=== PATIENT | male | born 1945 | race Caucasian/White ===

== ENCOUNTER 2017-06-15 15:23 | Inpatient (IN) ==
[2017-06-15 16:52] LABS: Basophils % 0.5 % (0.0-0.8); Eosinophils # 0.2 10*3/uL (0.0-0.87); Eosinophils % 2.7 % (0.00-10.9); Hematocrit 25.6 VOL% (42.0-52.0); Immature Granulocytes % 0.4 %; Immature Granulocytes Absolute 0.02 #; Lymphocytes # 0.8 10*3/uL (1.4-4.0); Lymphocytes % 14.8 % (21.2-54.2); Mean Corpuscular HGB Conc 25.4 GM/DL (32-36); Mean Corpuscular Hemoglobin 14 PG (27-34); Mean Corpuscular Volume 56.5 FL (87-102); Monocytes # 0.8 10*3/uL (0.11-0.8); Monocytes % 13.6 % (1.7-12.7); Neutrophils # 3.9 10*3/uL (1.4-7.4); Platelet Count 232 T/CUMM (130-400); Red Blood Count 4.53 MC/CUMM (3.8-5.5); Red Cell Distribution Width 21.3 % (9.3-17.3); White Blood Count 5.7 T/CUMM (4-12)
[2017-06-15 16:53] LABS: Hemoglobin 6.5 GM/DL (14.0-18.0)
--- NOTE | 2017-06-15 16:54 | Emergency Department Note ---
Arrival - Arrival Chief Complaint: Weakness Stated Complaint: Needs a blood transfusion ED Nursing Triage Note: Pt sent by Dr Rutherford for possible blood transfusion. Pt had lab work drawn yesterday told HGB 6.9. Pt c/o weakness Mode of Arrival: Ambulatory Limitations: No Limitations Source: Patient, Family, RN Notes Reviewed Time Seen by Provider: 06/15/17 16:34 - History of Present Illness HPI Narrative: Patient complains of generalized weakness for 2 more weeks. He denies any chest pain, nausea, vomiting, diaphoresis or syncope. The states he gets short of breath walking to the mailbox. The patient states he is just fatigued. He was seen by his primary care physician yesterday and had blood work drawn. He was called back today and told his hemoglobin was 6.9. He was instructed to come here for blood transfusion and further workup. The patient denies any rectal bleeding or other bleeding recently. He has had some constipation recently and has noticed some dark stool. His last bowel movement was today and was normal. He has a history of CAD, high cholesterol and diabetes. He denies any fever, rhinorrhea, sore throat, cough or recent illness. Allergies/Adverse Reactions: Allergies Allergy/AdvReac Type Severity Reaction Status Date / Time No Known Allergies Allergy Verified 06/15/17 15:24 Review of System - Review of System 12 point system: reviewed and no additional remarkable complaints except as stated - Review of System Constitutional: Present: weakness. Absent: chills, fever Head/Ears/Nose/Throat: Absent: nasal drainage, sore throat Respiratory: Absent: cough, respiratory distress, wheezing Cardiovascular: Present: dyspnea on exertion. Absent: chest pain, orthopnea, edema, syncope Gastrointestinal: Present: constipation. Absent: nausea, vomiting, diarrhea Medical,Surgical,& Family Hx - Medical History Cardio: History of: CAD Endocrine: History of: Diabetes Mellitus (NIDDM) ("Borderline"), Dyslipidemia - Surgical History Cardiac Surgeries: Sugical HX of: Cardiac Catheterization (stent), Cardiac Surgery (CABG) Abdominal Surgeries: Surgical HX of: Appendectomy - Family History Family History: noncontributory - Social History Smoking Status: Never smoker Exam Physical Examination: GENERAL: Alert. No acute distress. HEENT: Normocephalic and atraumatic. PERRLA. EOMI. Pale conjunctival. There is no nasal drainage. No pharyngeal erythema or exudate. NECK: Normal inspection. Supple. No lymphadenopathy or meningismus. LUNGS: No respiratory distress. Clear to auscultation bilaterally, no wheezes, rales or rhonchi. HEART: Regular rate and rhythm. 2 out of 6 systolic murmur. ABDOMEN: Soft, nontender and nondistended with normoactive bowel sounds. Rectal: Nontender. Positive noninflamed, nontender, nonthrombosed external hemorrhoid without bleeding. Heme negative. BACK: Normal inspection. SKIN: Color normal. Warm and dry. EXTREMITIES: Nontender. Normal range of motion. No pedal edema. NEUROLOGICAL/PSYCHIATRIC: Alert and oriented -3 with normal mood and affect. Cranial nerves normal. No motor or sensory deficit. Vital Signs: Vital Signs Temperature 97.9 F 06/15/17 15:23 Pulse Rate 93 H 06/15/17 15:23 Respiratory Rate 16 06/15/17 15:23 Blood Pressure 133/81 06/15/17 15:23 O2 Sat by Pulse Oximetry 100 06/15/17 15:23 Course - Reevaluation(s) Reevaluation #1: The patient has remained stable in the ER. He has symptomatic anemia and will need transfusion. The source of his anemia remains unclear as his Hemoccult was negative. He has no history of this in the past. I discussed patient with the hospitalist service who will see him and admit. Time: 17:54 Results - Labs CBC & BMP: 06/15/17 16:32 06/15/17 16:32 Lab Results: I have reviewed the patients labs Labs: Laboratory Tests 06/15/17 16:32 Calcium 8.4 L Total Bilirubin 0.50 AST 15 ALT 16 Disposition Clinical Impression: Anemia Case discussed with: patient, patient's family Disposition: Still a Patient Condition: Stable Time of Disposition: 17:45
[2017-06-15 17:29] LABS: Albumin 3.3 G/DL (3.4-5.0); Bilirubin,Total 0.5 MG/DL (0.2-1.0); Calcium 8.4 MG/DL (8.5-10.1); Osmolality,Calculated 281.3 MOS/KG (273-304); Potassium 3.9 MMOL/L (3.5-5.1); Total Protein 6.4 G/DL (6.4-8.3)
[2017-06-15] MEDS ORDERED: BISACODYL 5 MG TABLET PO PRN (19:22)
[2017-06-15] MEDS ORDERED: ONDANSETRON 4 MG/2 ML VIAL IV PRN (19:22)
[2017-06-15] MEDS ORDERED: LACTULOSE 20 GM/30 ML UDCUP PO PRN (19:22)
[2017-06-15 19:42] LABS: Anisocytosis 2+; Hypochromasia 2+; Microcytosis 3+; Ovalocytes Few; Platelet Estimate Normal; Poikilocytosis 2+; Tear Drop Cells Few
[2017-06-15 19:43] LABS: Burr Cells Few
[2017-06-15] MEDS ORDERED: DEXTROSE 50% 25 GM/50 ML SYRINGE IV PRN ×2 (19:46→21:09)
[2017-06-15] MEDS ORDERED: GLUCAGON 1 MG VIAL IM PRN ×2 (19:46→21:09)
[2017-06-15] MEDS ORDERED: SODIUM CHLORIDE 0.9% 250 ML IV PRN (19:52)
[2017-06-15 20:16] LABS: % Iron Saturation 1.5 % (18-50); Ferritin 4.5 ng/ml (26-388)
--- NOTE | 2017-06-15 20:20 | Hospitalist History & Physical ---
Assessment and Plan (1) Anemia Status: Acute Current Visit: Yes (2) GI (gastrointestinal bleed) Status: Acute Current Visit: Yes (3) CAD (coronary artery disease) Status: Chronic Current Visit: Yes (4) Pre-diabetes Status: Acute Assessment and plan: Plan: 1. Place on cardiac monitored bed. Anemia work up panel, Type and cross match and transfuse 2 units of PRBC, assess coags and h&H q 6 hours. IV fluids. 2. Suspect multifactorial, patient takes B12 suplement daily, has constipation issues with hemorrhoids. Suspect possible upper GI bleed due to complaints of off and on burning. GI consulted for work up. NPO until assessment per GI. IV protonix ordered 40mg daily. 3. Holding Plavix and ASA. EKG And Chest xray in am. SCD's for DVT prophylaxis. No lovenox at this time due to suspected bleeding. Resume statin tomorrow evening. 4. Accu cks q 6, insulin sliding scale. Hold metformin for now. Fifty three minutes was spent on this patient not including procedures. Current Visit: Yes History of Present Illness Chief complaint: Fatigue History of present illness: Mr. Almazan is a 71 year old male with past medical history significant for CAD on plavix and ASA with hx CABG x 3 and stents x3 several years ago, high cholesterol, prediabetes, and constipation, with dark colored stools that presented to the ED after being seen by his primary physician Dr. Rutherford and was found to have labs with significant anemia HGB of 5.9 and HCT 23.7. per scanned documention. He was called this am with lab results and instructed to come to the ED. The associated symptoms include fatigue, malaise , shortness, of breath when with exertion and pallor epigastric burning off and on. The patient denies chest pain dizziness, syncope, indigestion, nausea, vomiting, diaphoresis hematochezia . He states he has occasional hemorroids and has been constipated lately and bleeds sometimes after defecation but not a significant amount. Onset of symptoms were gradual and consistent and moderate in nature. Symptoms are worse with activity and improve with rest but never go away. He denies any ulcers. He underwent EGD and colonoscopy 2 years ago with no significant findings. He was placed on Plavix and aspirin 3 years ago for his stents. Labs on presentation to the ED revealed hemoglobin of 6.5 hematocrit 25.6 MCV of 56.5 MCH of 14 MCHC of 25.4 with platelets of 232. He has been typed and cross matched and will admitted to the Hospitalist service and placed on monitored cardiac Med Surg bed. Home Medications Medication Instructions Recorded Confirmed Type Aspirin EC Tab 325 mg PO QPM 06/15/17 06/15/17 History Cholecalciferol (Vitamin D3) 1,000 unit PO QPM 06/15/17 06/15/17 History [Vitamin D3] Clopidogrel [Plavix] 75 mg PO QPM 06/15/17 06/15/17 History Cyanocobalamin (Vitamin B-12) 2,500 mcg PO QPM 06/15/17 06/15/17 History [Vitamin B12] PARoxetine [Paxil] 20 mg PO QPM 06/15/17 06/15/17 History Rosuvastatin [Crestor] 20 mg PO QPM 06/15/17 06/15/17 History metFORMIN [Glucophage] 500 mg PO QPM 06/15/17 06/15/17 History Allergies Allergy/AdvReac Type Severity Reaction Status Date / Time No Known Allergies Allergy Verified 06/15/17 15:24 Medical,Surgical,& Family Hx - Medical History Cardio: History of: CAD, Cardiovascular Problems (CABG x 3 and Stents 3 years ago. Murmur) No history of: Cerebrovascular Disease Psychological: History of: Depression No history of: Anxiety Disorders Endocrine: History of: Diabetes Mellitus (NIDDM) ("Borderline"), Dyslipidemia Gastrointestinal: History of: Hemorrhoids, GI Problems (Constipation ) No history of: Crohn's Disease, Diverticulitis/ Diverticulosis, Esophageal Varices, Ulcerative Colitis Hematology: History of: Anemia - Surgical History Cardiac Surgeries: Sugical HX of: Cardiac Catheterization (stent), Cardiac Surgery (CABG) Abdominal Surgeries: Surgical HX of: Appendectomy - Family History Family History: Reports;: Family Hypertension - Social History Smoking Status: Never smoker Type of Drug Use: None Marital Status: Lives With:: Spouse Functional capacity: independent ambulation - Constitutional Constitutional: Present: fatigue, weakness - EENT Eyes: Present: requires corrective lense Nose, mouth and throat: Present: as per HPI, other - Cardiovascular Cardiovascular: Present: dyspnea on exertion. Absent: chest pain at rest, edema , palpitations - Respiratory Respiratory: Present: dyspnea on exertion. Absent: cough, hemoptysis, wheezing - Gastrointestinal Gastrointestinal: Present: bloating, constipation, heartburn, melena. Absent: fecal incontinence, hematemesis, hematochezia, nausea, vomiting - Genitourinary Genitourinary: Absent: difficulty urinating, hematuria - Musculoskeletal Musculoskeletal: Absent: back pain, muscle cramps, muscle weakness - Neurological Neurological: Absent: abnormal gait, confusion, paresthesias - Psychiatric Psychiatric: Absent: anxiety, auditory hallucinations, depression, suicidal ideation - Endocrine Endocrine: Present: cold intolerance - Hematologic/Lymphatic Hematologic/Lymphatic: Absent: easy bleeding, easy bruising Exam - Constitutional Vitals: Period Temp Pulse Resp BP Sys/Greco Pulse Ox Last 24 Hr 97.9 F-97.9 F 85-93 16-20 123-142/56-81 96-100 General appearance: normal weight, no acute distress - Head Head exam: Present: normal inspection, normocephalic, atraumatic - Eye Eye exam: Present: EOMI, other (pale conjucntiva) Pupils: Present: SITA - ENT ENT exam: Present: normal exam, other (pale mucous membranes, moist. ) - Cardiovascular Cardiovascular exam: Present: regular rate and rhythm, systolic murmur (II out of systolic murmur) - GI/Abdominal GI/Abdominal exam: Present: normal bowel sounds, soft (patient complains of constipation abd soft nontender. ) - Extremities Exam Extremities exam: Present: normal inspection, normal capillary refill, full ROM. Absent: edema - Back Exam Back exam: Present: normal inspection. Absent: CVA tenderness (L), CVA tenderness (R), vertebral tenderness - Neurological Exam Neurological exam: Present: alert, oriented X3, CN II-XII intact, reflexes normal. Absent: motor sensory deficit - Psychiatric Psychiatric exam: Present: normal affect - Skin Skin exam: Present: normal color, warm, dry, intact. Absent: diaphoretic, erythema Results - Labs CBC & BMP: 06/15/17 16:32 06/15/17 16:32 Quality Measures - VTE Contraindication to Pharmacological VTE Prophylaxis: Active Bleeding
[2017-06-15 20:31] LABS: Folate > 24.0 NG/ML (5.4-24.0); Vitamin B12 234 PG/ML (211-911)
[2017-06-15] MEDS: SODIUM CHLORIDE 0.9% 1,000 ML IV SCH (21:27)
[2017-06-15 22:20] LABS: Hematocrit 23.2 VOL% (42.0-52.0)
[2017-06-15 22:24] LABS: Hemoglobin 5.9 GM/DL (14.0-18.0)
[2017-06-15 22:28] LABS: Partial Thromboplastin Time 24.9 SECS (0-40)
[2017-06-15] MEDS: INSULIN LISPRO 100 UNIT/ML SUBCUT SCH (23:54)
[2017-06-16 01:53] LABS: Apearance,Urine CLEAR (Clear); Bilirubin,Urine Negative (Negative); Blood, Urine Negative (Negative); Glucose,Urine (UA) Negative (Negative); Ketones,Urine Negative (Negative); Nitrite,Urine Negative (Negative); Protein,Urine Negative; RBC,Urine 2 /HPF (0-4); Urine Color Yellow (Yellow); WBC,Urine <1 /HPF (0-6)
[2017-06-16 05:27] LABS: Basophils % 0.3 % (0.0-0.8); Eosinophils # 0.2 10*3/uL (0.0-0.87); Eosinophils % 3.3 % (0.00-10.9); Hemoglobin 7.7 GM/DL (14.0-18.0); Immature Granulocytes % 0.3 %; Immature Granulocytes Absolute 0.02 #; Lymphocytes % 15.8 % (21.2-54.2); Mean Corpuscular HGB Conc 27.3 GM/DL (32-36); Mean Corpuscular Hemoglobin 17 PG (27-34); Mean Corpuscular Volume 60.6 FL (87-102); Monocytes # 0.7 10*3/uL (0.11-0.8); Monocytes % 11.1 % (1.7-12.7); Neutrophils # 4.2 10*3/uL (1.4-7.4); Neutrophils % 69.2 % (38.7-73.9); Platelet Count 198 T/CUMM (130-400); Red Blood Count 4.65 MC/CUMM (3.8-5.5); Red Cell Distribution Width 27.4 % (9.3-17.3)
[2017-06-16 05:31] LABS: Hematocrit 28.2 VOL% (42.0-52.0)
[2017-06-16 05:48] LABS: Giant Platelets Few; Hypochromasia 1+; Ovalocytes Slight; Platelet Estimate Adequate
[2017-06-16 05:49] LABS: Microcytosis 1+
[2017-06-16 06:05] LABS: Albumin 2.9 G/DL (3.4-5.0); Bilirubin,Total 1.3 MG/DL (0.2-1.0); Calcium 8.4 MG/DL (8.5-10.1); Magnesium 2.3 MG/DL (1.8-2.4); Osmolality,Calculated 280.3 MOS/KG (273-304); Risk Ratio 3.82; Thyroid Stimulating Hormone 1.75 uIU/ml (0.358-3.74); Total Protein 5.5 G/DL (6.4-8.3); VLDL CHOLESTEROL 28.2 MG/DL
[2017-06-16] MEDS: INSULIN LISPRO 100 UNIT/ML SUBCUT SCH ×3 (06:06→18:48)
[2017-06-16] MEDS: SODIUM CHLORIDE 0.9% 1,000 ML IV SCH ×2 (07:26→13:54)
[2017-06-16 08:12] LABS: Hematocrit 26.3 VOL% (42.0-52.0)
[2017-06-16 08:15] LABS: Hemoglobin 7.3 GM/DL (14.0-18.0)
--- NOTE | 2017-06-16 08:24 | XRay Report ---
Portable chest Exam date: 06/16/2017 546 AM Indication: Shortness of breath, cough Comparison: Not available Findings: Mild cardiomegaly. Sternotomy wires and midline. Lungs are clear bilaterally. No acute osseous abnormalities. Visualized upper abdomen demonstrates no acute pathology. Impression: No acute cardiopulmonary findings PROCEDURE INTERPRETED AT [facility] DEPARTMENT OF RADIOLOGY Final Report Signed by: Catarino Morales
[2017-06-16] MEDS ORDERED: PANTOPRAZOLE 40 MG VIAL IV SCH (09:00)
--- NOTE | 2017-06-16 09:18 | EKG Report ---
Stationary ECG Study [facility] Test Date: 06/16/2017 8:24:59 AM Pat Name: JC HENDRIX Department: Room: 433 Gender: M Cops: ALISHA : [id number] Requested by: Gerardo Rosales Order Number: [id number] Matt MD: RENETTA CALVIN Intervals [place] Rate: 80 P: 61 [place]: 185 QRS: 70 QRSD: 101 T: 54 QT: 362 QTc: 398 Interpretive Statements SINUS RHYTHM INTERPRETATION BASED ON A DEFAULT AGE OF 40 YEARS Electronically Signed On 06-16-17 17:09:17 CDT by RENETTA CALVIN [email or web address]
--- NOTE | 2017-06-16 09:34 | Gastrointestinal Consult Note ---
Assessment and Plan (1) Anemia Status: Acute Assessment and plan: 06/16-several week history of fatigue and weakness with now reports of melena and a finding of hemoglobin of 5 at outside clinic. No prior history of anemia in the past or GI bleed. Last endoscopic evaluation 2 years ago. Obtain stool for occult blood. Obtain records from endoscopic clinic. Monitor serial H&H. Transfuse as necessary. We will plan on endoscopic evaluation after Plavix has been held 5 days. plan an addendum to followed by Dr. Fowler. Current Visit: Yes History of Present Illness Chief complaint: Anemia, melena History of present illness: Mr. Almazan is a 71 year old male who was admitted to the hospital and yesterday after being seen by his PCP, Dr. Rutherford, for complaints of weakness and fatigue. Patient has a prior history of CAD, Plavix therapy with history of stents with most recent placed last year, hypercholesterolemia, and reports of melena. Patient states that over the last several weeks he has gradually had an increase in fatigue and weakness. He states that he was just not feeling very well and earlier this week he began to notice that his stools were turning dark in color. He states that the symptoms persisted therefore he presented to see Dr. Rutherford and was found at that time to have a hemoglobin of 5.9. He was then referred to our facility for further evaluation. Patient states that he has had no nausea or vomiting and denies any epigastric pain. He has noted over the last several days that his GERD has worsened and not as well controlled. He denies any dysphagia, weight loss, fever or chills. He states that he has never had peptic ulcer disease in the past. His last endoscopy was done approximately 2 years ago at the endoscopic clinic by Dr. Fowler however he does not recall any abnormal findings at that time. His last dose of Plavix was on yesterday morning. He denies taking any NSAIDs. He was transfused 2 units of packed red blood cells with hemoglobin at 7 today. He denies a prior history of anemia and states he has not required a blood transfusion in the past. Home Medications Medication Instructions Recorded Confirmed Type Aspirin EC Tab 325 mg PO QPM 06/15/17 06/15/17 History Cholecalciferol (Vitamin D3) 1,000 unit PO QPM 06/15/17 06/15/17 History [Vitamin D3] Clopidogrel [Plavix] 75 mg PO QPM 06/15/17 06/15/17 History Cyanocobalamin (Vitamin B-12) 2,500 mcg PO QPM 06/15/17 06/15/17 History [Vitamin B12] PARoxetine [Paxil] 20 mg PO QPM 06/15/17 06/15/17 History Rosuvastatin [Crestor] 20 mg PO QPM 06/15/17 06/15/17 History metFORMIN [Glucophage] 500 mg PO QPM 06/15/17 06/15/17 History Allergies Allergy/AdvReac Type Severity Reaction Status Date / Time No Known Allergies Allergy Verified 06/15/17 15:24 Medical,Surgical,& Family Hx - Medical History Cardio: History of: CAD, Cardiovascular Problems (CABG x 3 and Stents 3 years ago. Murmur) No history of: Cerebrovascular Disease Psychological: History of: Depression No history of: Anxiety Disorders Endocrine: History of: Diabetes Mellitus (NIDDM) ("Borderline"), Dyslipidemia Gastrointestinal: History of: Hemorrhoids, GI Problems (Constipation ) No history of: Crohn's Disease, Diverticulitis/ Diverticulosis, Esophageal Varices, Ulcerative Colitis Hematology: History of: Anemia - Surgical History Cardiac Surgeries: Sugical HX of: Cardiac Catheterization (stent), Cardiac Surgery (CABG) Abdominal Surgeries: Surgical HX of: Appendectomy - Family History Family History: Reports;: Family Hypertension - Social History Smoking Status: Never smoker Frequency of Alcohol Use: None Type of Drug Use: None 12 point system: reviewed and no additional remarkable complaints except as stated - Constitutional Constitutional: Present: as per HPI, fatigue, malaise - EENT Eyes: Present: as per HPI Ears: Present: as per HPI Nose, mouth and throat: Present: as per HPI - Cardiovascular Cardiovascular: Present: as per HPI - Respiratory Respiratory: Present: as per HPI - Gastrointestinal Gastrointestinal: Present: as per HPI, melena - Genitourinary Genitourinary: Present: as per HPI - Musculoskeletal Musculoskeletal: Present: as per HPI - Neurological Neurological: Present: as per HPI - Psychiatric Psychiatric: Present: as per HPI - Endocrine Endocrine: Present: as per HPI - Hematologic/Lymphatic Hematologic/Lymphatic: Present: as per HPI Exam - Constitutional Vitals: Period Temp Pulse Resp BP Sys/Greco Pulse Ox Last 24 Hr 97.1 F-98.2 F 78-93 16-20 123-185/56-91 96-100 General appearance: normal weight, no acute distress - Head Head exam: Present: normal inspection, normocephalic - Eye Eye exam: Present: other (Lids and conjunctive are unremarkable). Absent: scleral icterus - ENT ENT exam: Present: normal exam, normal oropharynx - Neck Neck exam: Present: normal inspection - Respiratory Respiratory exam: Present: clear to auscultation bilaterally. Absent: rales, rhonchi, wheezes - Cardiovascular Cardiovascular exam: Present: regular rate and rhythm. Absent: diastolic murmur , JVD, systolic murmur - GI/Abdominal GI/Abdominal exam: Present: normal bowel sounds, soft. Absent: ascites, distended, mass, organomegaly, tenderness - Extremities Exam Extremities exam: Present: normal inspection, full ROM - Back Exam Back exam: Present: normal inspection - Neurological Exam Neurological exam: Present: alert, oriented X3 - Psychiatric Psychiatric exam: Present: normal affect, normal mood - Skin Skin exam: Present: normal color, warm, dry Results - Labs CBC & BMP: 06/16/17 07:29 06/16/17 05:03 Lab Results: I have reviewed the past 24 hour labs Quality Measures - VTE Contraindication to Pharmacological VTE Prophylaxis: Active Bleeding
[2017-06-16] MEDS ORDERED: GLUCAGON 1 MG VIAL IM PRN (13:27)
[2017-06-16] MEDS ORDERED: DEXTROSE 50% 25 GM/50 ML VIAL IV PRN (13:27)
[2017-06-16] MEDS ORDERED: SODIUM CHLORIDE 0.9% 250 ML IV PRN (14:03)
[2017-06-16 14:19] LABS: Hematocrit 27.1 VOL% (42.0-52.0)
[2017-06-16 14:22] LABS: Hemoglobin 7.6 GM/DL (14.0-18.0)
--- NOTE | 2017-06-16 16:09 | Hospitalist Progress Note ---
Hospitalist: Subjective Interval history: Patient has no complaints. He has no had a recent bowel movement. He denies any SOB or CP. Exam - Constitutional Vitals: Period Temp Pulse Resp BP Sys/Greco Pulse Ox Last 24 Hr 97.1 F-98.3 F 76-93 16-20 123-185/56-91 96-99 General appearance: no acute distress - Eye Eye exam: Present: EOMI Pupils: Present: SITA - ENT ENT exam: Present: normal exam - Respiratory Respiratory exam: Present: clear to auscultation bilaterally. Absent: rales, rhonchi, wheezes - Cardiovascular Cardiovascular exam: Present: regular rate and rhythm - GI/Abdominal GI/Abdominal exam: Present: normal bowel sounds, soft. Absent: tenderness - Extremities Exam Extremities exam: Absent: edema - Neurological Exam Neurological exam: Present: alert, oriented X3 - Psychiatric Psychiatric exam: Present: normal affect Results - Labs CBC & BMP: 06/16/17 13:42 06/16/17 05:03 - Impressions Active Issues: 1. Acute Melena 2. Severe anemia s/p transfusion 3. Iron deficiency, ferritin: 4.5 4. h/o B12 deficiency 5. h/o ASCAD s/p stent placement; plavix and asa on hold; on statin 6. h/o HTN 7. h/o DM, sugars controlled Plan: being followed by GI; appreciate help; being transfused. follow up h/h; if anemia has improved, will discharge in next 1-2 days and outpatient EGD. On PPI. add beta cathleen. Quality Measures - VTE Contraindication to Pharmacological VTE Prophylaxis: Active Bleeding
[2017-06-16] MEDS ORDERED: CHOLECALCIFEROL 1,000 UNIT TABLET PO SCH (19:00)
[2017-06-16] MEDS ORDERED: CYANOCOBALAMIN 500 MCG TABLET PO SCH (19:00)
[2017-06-16] MEDS ORDERED: PARoxetine 20 MG TABLET PO SCH (20:00)
[2017-06-16] MEDS: PANTOPRAZOLE 40 MG TABLET PO SCH (20:51)
[2017-06-16] MEDS: METOPROLOL TARTRATE 25 MG TABLET PO SCH (20:51)
[2017-06-17] MEDS: INSULIN LISPRO 100 UNIT/ML SUBCUT SCH ×3 (00:32→14:54)
[2017-06-17] MEDS: SODIUM CHLORIDE 0.9% 1,000 ML IV SCH ×4 (02:04→14:54)
[2017-06-17 06:29] LABS: Basophils % 0.4 % (0.0-0.8); Eosinophils # 0.2 10*3/uL (0.0-0.87); Eosinophils % 3.1 % (0.00-10.9); Hematocrit 34.4 VOL% (42.0-52.0); Hemoglobin 10.2 GM/DL (14.0-18.0); Immature Granulocytes % 0.1 %; Immature Granulocytes Absolute 0.01 #; Lymphocytes # 1.3 10*3/uL (1.4-4.0); Lymphocytes % 18.8 % (21.2-54.2); Mean Corpuscular HGB Conc 29.7 GM/DL (32-36); Mean Corpuscular Hemoglobin 19 PG (27-34); Mean Corpuscular Volume 64.4 FL (87-102); Monocytes # 0.8 10*3/uL (0.11-0.8); Monocytes % 11.6 % (1.7-12.7); Neutrophils # 4.7 10*3/uL (1.4-7.4); Platelet Count 186 T/CUMM (130-400); Red Blood Count 5.34 MC/CUMM (3.8-5.5); Red Cell Distribution Width 31.4 % (9.3-17.3); White Blood Count 7.1 T/CUMM (4-12)
[2017-06-17 06:55] LABS: Calcium 8.4 MG/DL (8.5-10.1); Magnesium 2.3 MG/DL (1.8-2.4); Osmolality,Calculated 279.4 MOS/KG (273-304); Potassium 4.3 MMOL/L (3.5-5.1)
[2017-06-17 08:15] LABS: Hypochromasia 2+; Microcytosis 1+; Spherocytes Few
[2017-06-17] MEDS: METOPROLOL TARTRATE 25 MG TABLET PO SCH (08:38)
[2017-06-17] MEDS: PANTOPRAZOLE 40 MG TABLET PO SCH (08:38)
--- NOTE | 2017-06-17 10:48 | Discharge Summary ---
<Hank Braxtonric - Last Filed: 06/17/17 10:12> Hospital Course - Hospital Course Hospital Course: Mr. Almazan is a 71 year old white male who was admitted through the [facility] nonurgent care on 06/15/17 after his PCP told him his recent blood work resulted in H&H levels consistent with severe anemia. He does have an extensive cardiac history and currently takes Plavix and aspirin. He was instructed to come to the hospital for transfusion. In the ED, the patient was found to have H &H of 6.5 and 25.6. Hospital medicine service was consulted for the admission. Patient was transfused with a total of 4 units of blood (1 PRBC, 3 Leuk-reduced RBCs) and GI was consulted. Dr. Fowler noted that the patient was stable however reports of melena suggest an upper GI bleed. He plans to perform and outpatient EGD on Monday. At this time, H&H is 10.2 and 34.4 and he is stable for discharge home. He should keep his appointment with Dr. Fowler for EGD and follow-up with his PCP in 1-2 weeks. - Time spent with patient Time with patient DS: Greater than 30 minutes Discharge Plan - Discharge Medications New Metoprolol Tartrate Tab [Lopressor Tab] 25 mg PO BID #60 tablet Pantoprazole Tab [Protonix Tab] 40 mg PO BID #60 tablet Continue Cyanocobalamin (Vitamin B-12) [Vitamin B12] 2,500 mcg PO QPM PARoxetine [Paxil] 20 mg PO QPM Cholecalciferol (Vitamin D3) [Vitamin D3] 1,000 unit PO QPM Rosuvastatin [Crestor] 20 mg PO QPM - Follow Up or Referral Follow Up: Marlo Fowler MD [Physician] - - Forms/Instructions Exam - Constitutional Vitals: Period Temp Pulse Resp BP Sys/Greco Pulse Ox Last 24 Hr 96.6 F-98.3 F 65-85 18-20 142-183/71-89 95-97 Discharge Results Procedures and tests throughout hospitalization: Pending Orders 06/15/17 19:22 Occult Blood, Stool Routine 06/15/17 21:47 Transferrin Routine Labs on day of discharge: Labs from last 24 hours 06/17/17 06/17/17 06/17/17 12:23 06:21 04:55 WBC RBC Hgb Hct MCV MCH MCHC RDW Plt Count Neut % (Auto) Lymph % (Auto) [place] % (Auto) Eos % (Auto) Baso % (Auto) Neut # (Auto) Lymph # (Auto) [place] # (Auto) Eos # (Auto) Baso # (Auto) Immature Gran % Nucleated RBC % Immature Gran # Nucleated RBCs # Immature Plt Fraction Hypochromasia Microcytosis Spherocytes Sodium 140 Potassium 4.3 Chloride 108 H Carbon Dioxide 24 Anion Gap 12.3 BUN 14 Creatinine 1.00 GFR Calculation 90 BUN/Creatinine Ratio 14.00 Glucose 93 POC Glucose 149 H 112 H Calculated Osmolality 279.4 Calcium 8.4 L Magnesium 2.3 Blood Type Antibody Screen Crossmatch Blood Bank Comment 06/17/17 06/17/17 06/16/17 04:55 00:02 Unknown WBC 7.1 RBC 5.34 Hgb 10.2 L D Hct 34.4 L MCV 64.4 L MCH 19 L MCHC 29.7 L RDW 31.4 H Plt Count 186 Neut % (Auto) 66.0 Lymph % (Auto) 18.8 L [place] % (Auto) 11.6 Eos % (Auto) 3.1 Baso % (Auto) 0.4 Neut # (Auto) 4.7 Lymph # (Auto) 1.3 L [place] # (Auto) 0.8 Eos # (Auto) 0.2 Baso # (Auto) 0.0 Immature Gran % 0.1 Nucleated RBC % 0.0 Immature Gran # 0.01 Nucleated RBCs # 0.00 Immature Plt Fraction 3.9 Hypochromasia 2+ Microcytosis 1+ Spherocytes Few Sodium Potassium Chloride Carbon Dioxide Anion Gap BUN Creatinine GFR Calculation BUN/Creatinine Ratio Glucose POC Glucose 103 Calculated Osmolality Calcium Magnesium Blood Type Cancelled Antibody Screen Cancelled Crossmatch See Detail Blood Bank Comment Cancelled 06/16/17 06/16/17 18:25 13:42 WBC RBC Hgb 7.6 L Hct 27.1 L MCV MCH MCHC RDW Plt Count Neut % (Auto) Lymph % (Auto) [place] % (Auto) Eos % (Auto) Baso % (Auto) Neut # (Auto) Lymph # (Auto) [place] # (Auto) Eos # (Auto) Baso # (Auto) Immature Gran % Nucleated RBC % Immature Gran # Nucleated RBCs # Immature Plt Fraction Hypochromasia Microcytosis Spherocytes Sodium Potassium Chloride Carbon Dioxide Anion Gap BUN Creatinine GFR Calculation BUN/Creatinine Ratio Glucose POC Glucose 211 H Calculated Osmolality Calcium Magnesium Blood Type Antibody Screen Crossmatch Blood Bank Comment DS: Provider Date of admission: 06/15/17 17:58 Primary care physician: . No PCP Attending physician on admission: Joshua Connell MD Consults: 06/15/17 19:22 Consult to Physician [CONS] Routine Comment: Consulting Provider: Marlo Fowler Consulting Provider Notified: Yes When should Consulting Provider be notified: Now Consult to Specialist Group: Gastroenterology When should Consulting Provider be notified: In am Person Notified: SANDRA Date Notified: 06/16/17 Time Notified: 08:48 Discharging clinician: Raul SCHAEFFER Expected date of discharge: 06/17/17 <Frankie James - Last Filed: 06/17/17 13:52> Discharge Plan - Discharge Data Condition at Discharge: Stable Contact your physician if you experience:: Bleeding - Forms/Instructions Additional Discharge Instructions: follow up with the stomach doctor on Monday for your scope. The number is [phone]. Please don't take your plavix or aspirin until a doctor tells you when to restart them. Follow up with your main doctor in 1-2 weeks. Exam - Constitutional General appearance: no acute distress, over weight - Head Head exam: Present: normal inspection - Eye Eye exam: Present: EOMI Pupils: Present: SITA - ENT ENT exam: Present: normal exam - Respiratory Respiratory exam: Present: clear to auscultation bilaterally. Absent: rales, rhonchi, stridor, wheezes - Cardiovascular Cardiovascular exam: Present: regular rate and rhythm - GI/Abdominal GI/Abdominal exam: Present: normal bowel sounds, soft. Absent: distended, tenderness - Extremities Exam Extremities exam: Absent: edema - Neurological Exam Neurological exam: Present: alert, oriented X3 - Psychiatric Psychiatric exam: Present: normal affect, normal mood Discharge Results - Impressions Patient has been seen and examined. I have reviewed the discharge summary by LAURY Braxton, and I agree with the documentation. Patient is hemodynamically and clinically stable. He has received transfusion and H/H has improved 10.2/34.4. It was 03/24 upon admission. He is safe for discharge. Active Issues: 1. Acute Melena 2. Severe anemia s/p transfusion, now with appropriate response 3. Iron deficiency, ferritin: 4.5; he will need to be started on iron as an outpatient; will defer to PCM 4. h/o B12 deficiency: continue home regimen 5. h/o ASCAD s/p stent placement; plavix and asa on hold until EGD; on statin 6. h/o HTN: started on lopressor; will continue lopressor 7. h/o DM, sugars controlled Plan: H/h better; will discharge today on PPI; continue lopressor and rest of home medications except plavix and aspirin. Follow up with GI for EGD on . Follow up with PCP in 1-2 weeks.
[2017-06-17 12:19] VITALS: BP 142/72
--- NOTE | 2017-06-17 13:38 | Event Note ---
Chief complaint GI bleed No further complaints he reported. Plavix has been held and plans for EGD with Dr. Fowler or set up for next Monday. He is eating well at this point wishes to go home. He remains hemodynamically stable and this should be safe. He understands to return if evidence of bleeding recurs. He will continue to hold his aspirin and Plavix. Hematocrit is 34% Review of systems denies any shortness of breath or chest pain On exam vital signs are stable lungs clear to auscultation no respiratory distress heart regular rhythm no murmur no edema. Lids conjunctiva is unremarkable sclerae anicteric. Extremities no clubbing cyanosis edema all 4 extremities. Recommendations:-Continue to hold Plavix plan EGD as outpatient with Dr. Fowler next Monday as discussed.
[2017-06-17] MEDS ORDERED: ROSUVASTATIN 20 MG TABLET PO SCH (19:00)
== END 2017-06-17 15:00 | disposition home or self-care (01) | DRG 812 ==
LOC: N.ED 15:23 → SUATTDRO 17:58 → N.EDINP 17:58 → N.4E 20:10
PROVIDERS: ADMIT Internal Medicine; ATTEND Internal Medicine